=== PATIENT | female | born 1995 | race Caucasian/White ===

== ENCOUNTER 2016-10-24 03:16 | Observation (INO) | payer MEDICAID ==
[2016-10-24] VITALS (8 sets, daily range): BP systolic 106–145; BP diastolic 60–98; PULSE 84–115; RESP 16–20; TEMP 96–98; O2SAT 98–100
[~2016-10-24] VITALS: Ht 167.6 cm; Wt 54.6 kg
[2016-10-24] MEDS ORDERED: MORPHINE SULFATE 4 MG/ML INJ IV PUSH ONE ×2 (04:00→06:15)
--- NOTE | 2016-10-24 04:48 | RADRPT ---
EXAM DATE/TIME: 10/24/2016 04:09 [facility] COMPARISON: No previous studies available for comparison. INDICATIONS : Left elbow pain and swelling from a fall. MEDICAL HISTORY : None. SURGICAL HISTORY : None. ENCOUNTER: Initial ACUITY: 1 day PAIN SCORE: 8/10 LOCATION: Left elbow FINDINGS: Intra-articular slightly oblique fracture involves the olecranon area of the proximal ulna. The fract ure is approximately 14 mm . There is an elbow joint effusion. Proximal radius and distal hu merus are intact. CONCLUSION: Intra-articular fracture of the olecranon with approximately 14 mm of separation. Michele Barrett MD on October 24, 2016 at 4:46 Board Certified Radiologist. This report was verified electronically.
--- NOTE | 2016-10-24 04:49 | RADRPT ---
EXAM DATE/TIME: 10/24/2016 04:14 [facility] COMPARISON: No previous studies available for comparison. INDICATIONS : Anterior knee laceration from a fall. MEDICAL HISTORY : None. SURGICAL HISTORY : None. ENCOUNTER: Initial ACUITY: 1 day PAIN SCORE: 3/10 LOCATION: Left Knee FINDINGS: Two view examination of the left knee demonstrates no evidence of fracture or dislocation. Bony mine ralization is normal. The suprapatellar soft tissues have a normal configuration. CONCLUSION: Normal radiographic appearance of the left knee. Michele Barrett MD on October 24, 2016 at 4:47 Board Certified Radiologist. This report was verified electronically.
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
[2016-10-24] MEDS ORDERED: TETANUS/DIPHTHERIA TOXOID ADULT 0.5 ML VIAL IM ONE (05:45)
[2016-10-24 06:21] LABS: AUTOMATED NEUTROPHIL # 10.3 TH/MM3 (1.8-7.7); BASOPHIL % 0.2 % (0.0-2.0); EOSINOPHIL # 0.1 TH/MM3 (0-0.4); EOSINOPHIL % 0.5 % (0.0-4.0); HEMO FLAGS DIFF FINAL; LYMPH % 14.9 % (9.0-44.0); LYMPHOCYTE # 1.9 TH/MM3 (1.0-4.8); MEAN CELL VOLUME 91.4 FL (80.0-100.0); MEAN CORPUSCULAR HEMOGLOBIN 30.9 PG (27.0-34.0); MEAN CORPUSCULAR HGB CONC 33.8 % (32.0-36.0); MONO % 5.6 % (0.0-8.0); NEUT % 78.8 % (16.0-70.0); PLATELET COUNT 272 TH/MM3 (150-450); RED BLOOD COUNT 3.61 MIL/MM3 (4.00-5.30); RED CELL DISTRIBUTION WIDTH 13.4 % (11.6-17.2)
[2016-10-24 06:38] LABS: APTT (PATIENT) 27.6 SEC (24.3-30.1); PROTHROMBIN TIME - PATIENT 11.1 SEC (9.8-11.6)
[2016-10-24 06:42] LABS: BICARBONATE 23.8 MEQ/L (21.0-32.0); POTASSIUM 3.5 MEQ/L (3.5-5.1)
[2016-10-24] MEDS ORDERED: KETOROLAC TROMETHAMINE 30 MG/ML (IVP) VIAL IVP ONE (08:45)
[2016-10-24] MEDS ORDERED: diphenhydrAMINE HCL 25 MG CAP PO PRN (08:45)
[2016-10-24] MEDS ORDERED: ONDANSETRON HCL 4 MG/2 ML VIAL IVP PRN (08:45)
[2016-10-24] MEDS ORDERED: ceFAZolin 2 GM PREMIX 50 ML IV SCH (08:45)
[2016-10-24] MEDS ORDERED: ONDANSETRON HCL 4 MG/2 ML VIAL IV PRN (08:45)
[2016-10-24] MEDS ORDERED: ACETAMINOPHEN/HYDROcodone 325 MG/5 MG TAB PO PRN (08:45)
[2016-10-24] MEDS ORDERED: MORPHINE SULFATE 8 MG/ML INJ IV PUSH PRN (08:45)
[2016-10-24] MEDS ORDERED: NALOXONE HCL 0.4 MG/ML AMP IV PRN (08:45)
[2016-10-24] MEDS ORDERED: ZOLPIDEM TARTRATE 5 MG TAB PO PRN (08:45)
[2016-10-24] MEDS ORDERED: diphenhydrAMINE HCL 50 MG/ML VIAL IV PRN (08:45)
[2016-10-24] MEDS ORDERED: SODIUM CHLORIDE 0.9% FLUSH 10 ML FLUSH IV FLUSH PRN ×2 (08:45)
[2016-10-24] MEDS ORDERED: oxyCODONE/ACETAMINOPHEN 5 MG/325 MG TAB PO PRN ×2 (08:45)
[2016-10-24] MEDS ORDERED: SODIUM CHLORIDE 0.9% FLUSH 10 ML FLUSH IV FLUSH SCH (09:00)
[2016-10-24] MEDS: DOCUSATE SODIUM 100 MG CAP PO SCH ×2 (09:00→21:00)
[2016-10-24] MEDS: SODIUM CHLORIDE 0.9% FLUSH 10 ML FLUSH IV FLUSH SCH ×2 (09:33→21:00)
[2016-10-24] MEDS ORDERED: PERC5TAB12 PO (10:34)
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
--- NOTE | 2016-10-24 18:35 | EKG ---
Date Performed: 10/24/2016 Time Performed: 08:49:36 PTAGE: 21 years EKG: Sinus rhythm WITH FIRST DEGREE AV BLOCK POSSIBLE RIGHT VENTRICULAR CONDUCTION DELAY ABNORMAL ECG NO PREVIOUS TRACING DOCTOR: Rikki Moreira Interpretating Date/Time 10/24/2016 18:34:25
[2016-10-24] MEDS: MORPHINE SULFATE 4 MG/ML INJ IV PUSH PRN (20:18)
[2016-10-25] VITALS: BP 122/61; PULSE 80; RESP 16; TEMP 97.6; O2SAT 100
[2016-10-25] MEDS: MORPHINE SULFATE 4 MG/ML INJ IV PUSH PRN ×2 (00:17→04:25)
[2016-10-25] MEDS ORDERED: SODIUM CHLORID 0.9% 500 ML IV PRN (02:45)
[2016-10-25] MEDS ORDERED: INSULIN HUMAN REGULAR 1,000 UNITS/10 ML VIAL SQ PRN (02:45)
[2016-10-25] MEDS ORDERED: LACTATED RINGER'S 1000 ML IV PRN (02:45)
[2016-10-25] MEDS ORDERED: METOPROLOL TARTRATE 25 MG TAB PO PRN (02:45)
[2016-10-25] MEDS ORDERED: CHLORHEXIDINE GLUCONATE 2 % 1 PACK (2 CLOTHS) TOPICAL PRN (02:45)
[2016-10-25] MEDS ORDERED: POVIDONE IODINE 5% (ANTISEPSIS KIT) 4 APPLICATIONS EACH NARE PRN (02:45)
[2016-10-25 04:00] VITALS: BP 97/57; PULSE 85; RESP 17; TEMP 97.3; O2SAT 99
[2016-10-25 08:00] VITALS: BP 101/63; PULSE 61; RESP 18; TEMP 97; O2SAT 97
[2016-10-25] MEDS: DOCUSATE SODIUM 100 MG CAP PO SCH (08:51)
[2016-10-25] MEDS: SODIUM CHLORIDE 0.9% FLUSH 10 ML FLUSH IV FLUSH SCH (08:51)
[2016-10-25] MEDS ORDERED: GENTAMICIN SULFATE 80 MG/2 ML VIAL ONE (09:10)
[2016-10-25] MEDS ORDERED: fentaNYL CITRATE 250 MCG/5 ML AMP ONE (09:48)
[2016-10-25] MEDS ORDERED: DEXAMETHASONE SOD PHOS 4 MG/ML VIAL ONE (10:04)
[2016-10-25] MEDS ORDERED: MIDAZOLAM HCL 2 MG/2 ML VIAL ONE (10:04)
[2016-10-25] MEDS ORDERED: ceFAZolin INJ 1,000 MG VIAL ONE (10:06)
[2016-10-25] MEDS ORDERED: VANCOMYCIN HCL 1000 MG VIAL ONE (10:06)
[2016-10-25] MEDS ORDERED: FAMOTIDINE 20 MG/2 ML VIAL ONE (10:06)
[2016-10-25] MEDS ORDERED: SODIUM CHLOR 0.9% 250 ML INJ 250 ML ONE (10:07)
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
[2016-10-25] MEDS ORDERED: LACTATED RINGER'S 1000 ML INJ 1,000 ML IV SCH (11:47)
[2016-10-25] MEDS ORDERED: ZOFR4TAB PO (11:47)
--- NOTE | 2016-10-25 11:50 | PD.OP ---
cc: Timur Schrader Jr., MD Operative Report Date of Surgery: October 25, 2016 Preoperative Diagnosis: Displaced left olecranon fracture Postoperative Diagnosis: Same Procedure: Open reduction internal fixation left olecranon Anesthesia: Gen. Surgeon: Timur Schrader Personnel Psychologist(s): Staff Resident Surgeon: None Operation and Findings: Patient was seen and evaluated preoperatively and found to have a displaced olecranon fracture. the fracture was closed. Informed consent was obtained after detailed discussion of risk and benefits including bleeding, infection, injury to arteries, nerves, and blood vessels, weakness and numbness of hand, and tendon rupture. Informed consent was obtained. Patient received IV antibiotics prior to incision. Timeout procedure was performed. Operative extremity was prepped with alcohol followed by Hibiclens and draped usual sterile fashion. A standard direct posterior approach to the olecranon was performed. Dissection taken down to the olecranon process and then distal to the proximal shaft. A transverse displaced olecranon fracture was identified.The ulnar nerve was identified in the groove and was kept in direct visualization and protected throughout the entire procedure. The fracture site was now visualized. The fracture ends were sharply debrided and cleaned. The articular surface was reduced. Fracture fragments were manipulated to achieve excellent reduction. K wires were used to hold provisional fixation. Fluoroscopy confirmed appropriate alignment of fracture. A Synthes olecranon plate was selected . Plate was provisionally fixed to bone with K wires. 2.7 screws and 3.5 cortical screws were used to compress plate to bone. Fluoroscopy confirmed appropriate alignment of fracture with well-placed hardware. Additional screws were now placed. Screws were predrilled and measured for appropriate length. K wires were removed. Final fluoroscopy revealed excellent reduction of fracture with well-placed hardware. The wound was thoroughly irrigated with sterile saline. Subcutaneous tissue was closed with 2-0 vicryl, 3-0 Vicryl and skin was closed with 2.0 nylon. Sterile dressings were applied with Xeroform, 4 x 4, soft roll, and a well padded long-arm posterior splint. Patient was awakened and transferred to recovery room in stable condition IMPLANTS USED Synthes POSTP-OP PLAN OF ACTIVITY Antibiotics: Ancef Antiocoagulation: OOB TID. SCD Weight bearing status: NWB Dressing: Do not remove splints/cast. Dispo: expected discharge home today Timur Schrader Jr., MD October 25, 2016 11:50
[2016-10-25] MEDS ORDERED: SODIUM CHLORIDE 0.9% FLUSH 10 ML FLUSH IV FLUSH PRN (12:00)
[2016-10-25] MEDS ORDERED: ONDANSETRON HCL 4 MG/2 ML VIAL IV PRN (12:00)
[2016-10-25] MEDS ORDERED: ZOLPIDEM TARTRATE 5 MG TAB PO PRN (12:00)
[2016-10-25] MEDS ORDERED: KETOROLAC TROMETHAMINE 30 MG/ML (IVP) VIAL IVP ONE (12:00)
[2016-10-25] MEDS ORDERED: oxyCODONE/ACETAMINOPHEN 5 MG/325 MG TAB PO PRN ×2 (12:00)
[2016-10-25] MEDS ORDERED: MORPHINE SULFATE 8 MG/ML INJ IV PUSH PRN (12:00)
[2016-10-25] MEDS ORDERED: DO NOT ADM ANY ANTICOAGULANT DRUGS PRN (12:45)
[2016-10-25 13:10] VITALS: BP 111/67; PULSE 78; RESP 18; TEMP 97; O2SAT 100
[2016-10-25] MEDS ORDERED: PROPOFOL 200 MG/20 ML AMP IV ONE (14:46)
[2016-10-25] MEDS ORDERED: PHENYLEPH/NS 1000 MCG/10 ML SYR IV ONE (14:47)
[2016-10-25] MEDS ORDERED: NEOSTIGMINE 3 MG/3 ML SYR IV ONE (14:47)
[2016-10-25] MEDS ORDERED: ePHEDrine/NS 25 MG/5 ML SYR IV ONE (14:47)
[2016-10-25] MEDS ORDERED: ONDANSETRON HCL 4 MG/2 ML VIAL IV PUSH ONE (14:47)
[2016-10-25] MEDS ORDERED: LACTATED RINGER'S 1000 ML INJ 1,000 ML IV ONE (14:47)
--- NOTE | 2016-10-25 15:59 | RADRPT ---
EXAM DATE/TIME: 10/25/2016 11:31 [facility] COMPARISON: ELBOW LEFT LIMITED (AP & LAT), October 24, 2016, 4:09. INDICATIONS : ORIF left olecranon. MEDICAL HISTORY : None. SURGICAL HISTORY : None. ENCOUNTER: Subsequent ACUITY: 2 days PAIN SCORE: Non-responsive. LOCATION: Left elbow. FINDINGS: 2 magnified C-arm spot views are centered over the elbow and labeled left. These show an orthopedic p late along the dorsal cortical margin of the proximal humerus with multiple anchoring screws. There i s good alignment at the olecranon fracture. CONCLUSION: Limited images as detailed above. Jamarcus Caal Jr., MD on October 25, 2016 at 15:56 Board Certified Radiologist. This report was verified electronically.
[2016-10-25 16:00] VITALS: BP 99/51; PULSE 83; RESP 18; TEMP 96.8; O2SAT 99
[2016-10-25] MEDS ORDERED: DOCUSATE SODIUM 100 MG CAP PO SCH (21:00)
[2016-10-25] MEDS ORDERED: SODIUM CHLORIDE 0.9% FLUSH 10 ML FLUSH IV FLUSH SCH (21:00)
== END 2016-10-25 18:27 | disposition home or self-care (01) ==
LOC: EDBD → NEPE 03:16 → NEDA 06:26 → UNDOADMIN 06:26 → NEDA 08:39 → INTOOBSV 08:39 → N06B 12:47 → NEDA 12:47
PROVIDERS: ADMIT Orthopaedic Surgery; ATTEND Orthopaedic Surgery
DX: S52.022A Displaced fracture of olecranon process without intraarticular extension of left ulna, initial encounter for closed fracture (principal); M25.522 Pain in left elbow; M25.562 Pain in left knee; Y04.8XXA Assault by other bodily force, initial encounter; Y92.89 Other specified places as the place of occurrence of the external cause; Z23 Encounter for immunization; D72.829 Elevated white blood cell count, unspecified; I44.0 Atrioventricular block, first degree; R94.31 Abnormal electrocardiogram [ECG] [EKG]
CPT/HCPCS: 01740; 24685; 73070; 73560; 76000; 80048; 85025; 85610; 85730; 86850; 86900; 86901; 90471; 90714; 93005; 96374; 96376; 99285; C1713; G0378; J0690; J1100; J1580; J1885; J2250; J2270; J2370; J2405; J2710; J3010; J3370; J7050; J7120

== ENCOUNTER 2016-10-28 15:23 | Emergency (ER) | payer MEDICAID ==
[~2016-10-28] VITALS: Ht 154.9 cm; Wt 48.0 kg
[~2016-10-28 15:23] MED LIST: PERC5TAB12 PO; ZOFR4TAB PO
[2016-10-28 15:24] VITALS: BP 136/81; PULSE 87; RESP 17; TEMP 98.4; O2SAT 99
--- NOTE | 2016-10-28 15:30 | PD ---
Physical Exam Date Seen by Provider: October 28, 2016 Time Seen by Provider: 15:29 Narrative Pt had elbow surgery Tuesday, when she woke up today her left hand was swollen and her elbow feels as if something is leaking. Pain has been consistent since the surgery. No fevers. VSS. Awaiting bed placement. Data Data Last Documented VS Vital Signs Date Time Temp Pulse Resp B/P Pulse Ox O2 Delivery O2 Flow Rate FiO2 10/28/16 15:24 98.4 87 17 136/81 99 MDM Supervised Visit with SCOOBY: Simi Issa October 28, 2016 15:30
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
== END 2016-10-28 18:20 | disposition home or self-care (01) ==
LOC: NEPD 15:23
DX: M79.89 Other specified soft tissue disorders (principal); Z48.01 Encounter for change or removal of surgical wound dressing
CPT/HCPCS: 29105